=== PATIENT | female | born 1935 | race Caucasian/White ===

== ENCOUNTER → 2017-07-31 | Outpatient (CLI) | payer OTHER, MEDICARE ==
[2017-07-31 10:08] LABS: BASO % 0.3 %; BASO ABS # 0.02 K/uL (0-0.2); EOS % 3.9 %; EOS ABS # 0.23 K/uL (0-0.5); HEMATOCRIT 41.2 % (37-47); HEMOGLOBIN 13.5 g/dL (12.0-16.0); IG# 0.01 K/uL (0.00-0.02); LYMPH ABS # 2.07 K/uL (1.2-3.4); MEAN CELL VOLUME 91.6 fL (80-100); MEAN CORPUSCULAR HGB CONC 32.8 g/dl (32-36); MEAN PLATELET VOLUME 9.5 fL (7.4-10.4); MONO % 8.5 %; NEUT % 52.1 %; NEUT ABS # 3.08 K/uL (1.4-6.5); PLATELET COUNT 196 K/uL (130-400); RED CELL DISTRIBUTION WIDTH CV 13.1 % (11.5-14.5); RED CELL DISTRIBUTION WIDTH SD 43.8 fL (36.4-46.3); WHITE BLOOD COUNT 5.91 K/uL (4.8-10.8)
[2017-07-31 10:25] LABS: HEMOGLOBIN A1C 5.5 % (4.5-5.6)
[2017-07-31 10:34] LABS: ALBUMIN 3.4 gm/dl (3.4-5.0); ALT/SGPT 19 U/L (12-78); AST/SGOT 13 U/L (15-37); BLOOD UREA NITROGEN 22 mg/dl (7-18); CALCIUM 8.7 mg/dl (8.5-10.1); CARBON DIOXIDE 35 mmol/L (21-32); CREATININE 0.88 mg/dl (0.60-1.20); GLUCOSE 90 mg/dl (70-99); POTASSIUM 3.4 mmol/L (3.5-5.1); SODIUM 137 mmol/L (136-145)
[2017-07-31 10:43] LABS: ALKALINE PHOSPHATASE 94 U/L (45-117); CHOLESTEROL 182 mg/dl (0-200); LDL CHOLESTEROL CALCULATED 82 mg/dl; TOTAL PROTEIN 6.9 gm/dl (6.4-8.2)
== END | disposition home or self-care (01) ==
LOC: C.LAB 09:29
PROVIDERS: ATTEND Family Medicine
DX: I10 Essential (primary) hypertension (principal); R73.09 Other abnormal glucose; M15.9 Polyosteoarthritis, unspecified; E78.5 Hyperlipidemia, unspecified

== ENCOUNTER 2017-08-18 14:33 | Emergency (ER) | payer OTHER, MEDICARE ==
[~2017-08-18] VITALS: Ht 162.6 cm; Wt 65.8 kg
[2017-08-18 14:41] VITALS: TEMP 36.9; Ht 162.6 cm; Wt 65.8 kg
[2017-08-18] MEDS ORDERED: LIDOCAINE/EPINEPH/TETRACAINE 1 EA SYR EXT STA (15:03)
[2017-08-18] MEDS ORDERED: CALC-393 PO (15:04)
[2017-08-18] MEDS ORDERED: AMOX500C3 PO (15:04)
[2017-08-18] MEDS ORDERED: DOXY20TA3 PO (15:04)
[2017-08-18] MEDS ORDERED: ASPI81TA28 PO (15:04)
[2017-08-18] MEDS ORDERED: CYAN10005 PO (15:04)
[2017-08-18] MEDS ORDERED: MULT-513 PO (15:04)
[2017-08-18] MEDS ORDERED: HYDR12.55 PO (15:04)
[2017-08-18] MEDS ORDERED: CHOL100027 PO (15:04)
[2017-08-18] MEDS ORDERED: TRAM-453 PO (15:04)
[2017-08-18] MEDS ORDERED: GLUC1CAP35 PO (15:04)
[2017-08-18] MEDS ORDERED: OMEG10007 PO (15:04)
[2017-08-18] MEDS ORDERED: CPRDOTS OT (16:07)
--- NOTE | 2017-08-18 16:09 | EMERGENCY ROOM VISIT NOTE ---
ED Visit Note First contact with patient: 14:46 CHIEF COMPLAINT: Foreign body in the ear canal HISTORY OF PRESENT ILLNESS: This 81-year-old female patient presented to the emergency department with complaint of hearing aid battery in her left ear canal. Patient states this occurred 5 days ago, she believes the battery fell out while she was taking her hearing aid out and she was unaware of this, and then she put the hearing aid back in, pushing the battery further back into the canal. She went to see her accounting specialist, who attempted to remove the battery, but was unable to due to patient's level of pain. He is here with her and reports that the battery is a size 312 Air Zinc hearing aid battery, and confirms that this type of battery is inert and should not cause any corrosion. Patient states that there has not been any bleeding or drainage from the ear, denies fevers or chills, headache, neck pain, nausea or vomiting, REVIEW OF SYSTEMS: A 6 point review of systems was reviewed with the patient with pertinent positives and negatives as per history of present illness. All else were negative. PMH: The patient is healthy; there is no significant medical or surgical history. Her tetanus is up-to-date. SOCIAL HISTORY: Patient lives at home. PHYSICAL EXAM: Vital Signs: Reviewed Nurse's notes. The patient is calm and is not in acute distress. Exam of the left ear canal shows a round silver colored battery that is stuck deep in the canal. There is no erythema, bleeding or drainage noted. There is tenderness with palpation of the tragus. The external ear is not inflamed or tender. The TM is not able to be visualized due to the foreign body. EMERGENCY DEPARTMENT COURSE: I examined the patient. Battery is deep within the ear canal, but is able to be visualized. Dr. Khalil and myself made multiple attempts with straight forceps, alligator forceps, and suction to remove the battery, however the patient did not tolerate this well due to pain. The decision was therefore made to stop attempts to remove the foreign body at this time. Given the fact that the battery is inert and there is no concern for corrosion, we will refer the patient to ENT to have this further addressed. Ciprodex eardrops ordered to help treat potential for infection and reduce inflammation in the ear canal. The patient was updated on follow-up plan as well as educated regarding eardrops, she verbalized understanding. Patient was discharged home in stable condition and ambulatory. Medication Reconciliation: I attest that I have personally reviewed the patient' s current medication list. Blood pressure screening: The patient was found to have an elevated blood pressure, this was felt to be situational. I discussed the patient with Dr. Khalil, who also evaluated the patient increased my assessment and plan. Current/Historical Medications Scheduled Amoxicillin (Amoxil), 2,000 MG PO UD Aspirin (Aspirin Ec), 81 MG PO BID Calcium Carbonate (Calcium), 600 MG PO DAILY Cholecalciferol (Vitamin D 1000 Unit), 1,000 INTER.UNIT PO DAILY Ciprofloxacin/Dexamethasone (Ciprodex 0.3-0.1 %), 4 DROPS OT BID Cyanocobalamin (Vitamin B-12), 1,000 MCG PO DAILY Doxycycline Hyclate (Doxycycline Hyclate), 20 MG PO UD Fish Oil ([place]-3), 1 CAP PO DAILY Hkbslwanusm-Lrbmbvdholf-Xwf C- (Glucosamine Chondroitin), 1 CAP PO DAILY Hydrochlorothiazide (Hydrochlorothiazide), 1 TAB PO DAILY Multivitamins/Minerals (Mvi With Minerals), 1 TAB PO DAILY Scheduled PRN Tramadol Hcl (Ultram), 50 MG PO Q8H PRN for Pain Allergies Coded Allergies: No Known Allergies (Unverified , 08/18/17) Vital Signs Date Time Temp Pulse Resp B/P (MAP) Pulse Ox O2 Delivery O2 Flow Rate FiO2 08/18/17 16:19 75 16 124/76 98 08/18/17 14:41 36.9 90 20 144/76 97 Room Air Departure Information Impression Primary Impression: Acute foreign body of left ear canal Dispostion Home / Self-Care Condition GOOD Prescriptions Ciprofloxacin/Dexamethasone (Ciprodex 0.3-0.1 %) 112 Drops/7.5 Ml Susp 4 DROPS OT BID for 5 Days, #1 BTL Prov: Lilian Lovett, AMY 08/18/17 Referrals No Doctor, Assigned (PCP) Jose Escobar M.D. Patient Instructions ED Foreign Body Ear Canal, My [facility] Additional Instructions Follow up with ENT on Sunday. You will be called to set up an appointment. Ciprodex ear drops put 4 drops in the left ear twice a day to treat possible infection and decrease swelling. Please return to the emergency department for any worsening symptoms, including severe ear pain, drainage from the ear canal, fevers/chills, or any other concerns. Problem Qualifiers Primary Impression: Acute foreign body of left ear canal Encounter type: initial encounter Qualified Codes: T16.2XXA - Foreign body in left ear, initial encounter
[2017-08-18 16:19] VITALS: BP 124/76; PULSE 75; O2SAT 98
--- NOTE | 2017-08-18 18:30 | EMERGENCY ROOM VISIT NOTE ---
ED Visit Note First contact with patient: 16:07 I have personally evaluated this patient examined her and reviewed the pertinent labs and data. I have discussed the case with Lilian Funk, the nurse practitioner and agree with the plan. Please refer to the PA note. This patient has had a hearing a battery stuck in her ear for several days. It is deep and against the canal. There is no bleeding. We had several different attempts to remove it without success. We are going to have her follow-up with your nose and throat for further removal. Her fitness trainer is actually at the bedside and says that there is nothing harmful and these batteries and he also tried to remove it prior to coming here.
== END 2017-08-18 16:20 | disposition home or self-care (01) ==
LOC: C.EDB 14:35 → C.EDD 16:20
DX: T16.2XXA Foreign body in left ear, initial encounter (principal); Z79.899 Other long term (current) drug therapy

== ENCOUNTER → 2017-08-21 | Day surgery (SDC) | payer OTHER, MEDICARE ==
[~2017-08-21] VITALS: Ht 162.6 cm; Wt 65.0 kg
[~2017-08-21] MED LIST: AMOX500C3 PO; ASPI81TA28 PO; ATROPINE SULFATE 0.1 MG/ML 5ML SYR IV PRN; CALC-393 PO; CHOL100027 PO; CPRDOTS OT; CYAN10005 PO; DOXY20TA3 PO; EpHEDrine SULFATE INJ 50 MG/ML AMP IV PRN; FENTANYL CITRATE INJ 50 MCG/1 ML 2 ML VIAL IV PRN; FENTANYL CITRATE INJ 50 MCG/1 ML 2 ML VIAL ONE; GLUC1CAP35 PO; HYDR12.55 PO; HYDROmorphone INJ 1 MG/ML SYR IV PRN; LABETALOL HCL IV 5 MG/ML 20ML IV PRN; LACTATED RINGER'S 1000ML 1,000 ML IV SCH; LIDOCAINE HCL 2% 2 ML VIAL (20MG/ML) ONE; MEPERIDINE HCL 25 MG/ML CARP IV PRN; MIDAZOLAM HCL 1 MG/ML 2ML VIAL ONE; MULT-513 PO; OMEG10007 PO; ONDANSETRON INJ 2 MG/ML 2 ML VIAL IV PRN; PROPOFOL IV EMULSION 10 MG/ML 20 ML VIAL IV ONE; TRAM-453 PO
[2017-08-21 08:06] VITALS: BP 133/61; PULSE 73; TEMP 36.4; O2SAT 95; Ht 162.6 cm; Wt 65.0 kg
--- NOTE | 2017-08-21 08:45 | History & Physical Bridge Note ---
H&P Re-Evaluation Bridge Note: I have examined the patient, reviewed the History & Physical and in the interval since the performance of the History & Physical I have noted the following changes of clinical significance: No changes noted
--- NOTE | 2017-08-21 09:07 | Discharge Instructions ---
Discharge Instructions Date of Service Aug 21, 2017. Admission Reason for Admission: Acute Foreign Body Left Ear Canal Initial Encounte Discharge Discharge Diagnosis / Problem: Foreign body left external audiotory canal. Discharge Goals Goal(s): Decrease discomfort Activity Recommendations Activity Limitations: resume your previous activity Lifting Limitations: none Exercise/Sports Limitations: none May Resume Sexual Activity: when tolerated Shower/Bathe: no limitations Driving or Machine Use: no limitations . Instructions / Follow-Up Instructions / Follow-Up No need for follow-up. Current Hospital Diet Patient's current hospital diet: Discharge Diet Recommended Diet: Regular Diet Procedures Procedures Performed: Removal of foreign body left external auditory canal. Pending Studies Studies pending at discharge: no Laboratory Results Hemoglobin A1c Test 07/31/17 09:35 Range/Units Estimated Average Glucose 111 mg/dl Hemoglobin A1c 5.5 4.5-5.6 % Lipid Panel Test 07/31/17 09:35 Range/Units Triglycerides Level 85 0-150 mg/dl Cholesterol Level 182 0-200 mg/dl HDL Cholesterol 83 mg/dl Cholesterol/HDL Ratio 2.2 LDL Cholesterol, Calculated 82 mg/dl Medical Emergencies . Who to Call and When: Medical Emergencies: If at any time you feel your situation is an emergency, please call 911 immediately. . Non-Emergent Contact Non-Emergency issues call your: Specialist Call Non-Emergent contact if: you have a fever, your pain is not controlled . . "Provider Documentation" section prepared by Jose Escobar. . VTE Core Measure Inpt VTE Proph given/why not?: Treatment not indicated
--- NOTE | 2017-08-21 09:10 | Discharge Instructions ---
Discharge Instructions Date of Service Aug 21, 2017. Admission Reason for Admission: Acute Foreign Body Left Ear Canal Initial Encounte Discharge Discharge Diagnosis / Problem: Foreign Body left external auditory canal. Discharge Goals Goal(s): Decrease discomfort Activity Recommendations Activity Limitations: resume your previous activity Lifting Limitations: none Exercise/Sports Limitations: none May Resume Sexual Activity: when tolerated Shower/Bathe: no limitations Driving or Machine Use: no limitations . Instructions / Follow-Up Instructions / Follow-Up Continue to use otic drops for 5 more days. Keep ear dry with cotton and vaseline for one week. Current Hospital Diet Patient's current hospital diet: Discharge Diet Recommended Diet: Regular Diet Procedures Procedures Performed: Removal of Foreign Left External Auditory Canal using Microsurgical Technique Pending Studies Studies pending at discharge: no Laboratory Results Hemoglobin A1c Test 07/31/17 09:35 Range/Units Estimated Average Glucose 111 mg/dl Hemoglobin A1c 5.5 4.5-5.6 % Lipid Panel Test 07/31/17 09:35 Range/Units Triglycerides Level 85 0-150 mg/dl Cholesterol Level 182 0-200 mg/dl HDL Cholesterol 83 mg/dl Cholesterol/HDL Ratio 2.2 LDL Cholesterol, Calculated 82 mg/dl Medical Emergencies . Who to Call and When: Medical Emergencies: If at any time you feel your situation is an emergency, please call 911 immediately. . Non-Emergent Contact Non-Emergency issues call your: Specialist Call Non-Emergent contact if: you have a fever, your pain is not controlled . . "Provider Documentation" section prepared by Jose Escobar. . VTE Core Measure Inpt VTE Proph given/why not?: Treatment not indicated
--- NOTE | 2017-08-21 09:11 | [facility] Post Operative Brief Note ---
Immediate Operative Summary Operative Date Aug 21, 2017. Pre-Operative Diagnosis Foreign Body, Left, External Auditory Canal Post-Operative Diagnosis Same as pre-operative Procedure(s) Performed Removal of Foreign Left External Auditory Canal using Microsurgical Technique Surgeon Dr. Jose Escobar Electronics Supervisor Surgeon(s) None per surgeon Estimated Blood Loss 0ml Findings Consistent with Post-Op Diagnosis Specimens A.) Hearing aid Battery, Left Ear Drains None Anesthesia Type MAC Complication(s) none Disposition Disposition: Recovery Room / PACU
[2017-08-21 09:16] VITALS: BP 112/56; PULSE 70; TEMP 36.8; O2SAT 94
--- NOTE | 2017-08-21 09:19 | [facility] Operative Report ---
Operative Report Operative Date Aug 21, 2017. Pre-Operative Diagnosis Foreign Body, Left, External Auditory Canal Post-Operative Diagnosis Same as pre-operative Procedure(s) Performed Removal of foreign body left external auditory canal using microsurgical technique. Surgeon Dr. Jose Escobar Web Press Jogger Surgeon(s) None per surgeon Estimated Blood Loss 0ml Findings Hearing aid battery immediately adjacent to left tympanic membrane with no perforation of the left tympanic membrane. Specimens A.) Hearing aid Battery, Left Ear Complication(s) None Disposition Recovery Room / PACU Indications 81 year old woman with a hearing aid deep in the left external auditory canal. A full informed consent covering the indications, risks, benefits and alternatives was provided in a relaxed office setting with an opportunity for questions and answers. The patient and I signed the consent form. Description of Procedure Under satisfactory MAC, the operating microscope and metal speculum were introduced to the left ear. Using a one millimeter right angled pick, the distal aspect of the battery was engaged at its location adjacent to the left tympanic membrane. With the right stanislav rotated to secure the battery, it was gently removed without damage to the tympanic membrane or external auditory canal. Patient was transported to recovery in no acute distress. I attest to the content of the Intraoperative Record and any orders documented therein. Any exceptions are noted below.
[2017-08-21 09:45] VITALS: BP 133/66; PULSE 68; TEMP 36.8; O2SAT 96
--- NOTE | 2017-08-21 10:00 | Anesthesiology Progress Note ---
Anesthesia Post Op Note Date & Time Aug 21, 2017 at 10:00 Vital Signs Pain Intensity: 0 Vital Signs Past 12 Hours Date Time Temp Pulse Resp B/P (MAP) Pulse Ox O2 Delivery O2 Flow Rate FiO2 08/21/17 09:45 36.8 68 18 133/66 96 Room Air 08/21/17 09:16 36.8 70 18 112/56 94 Room Air 08/21/17 08:06 36.4 73 18 133/61 (85) 95 Room Air Notes Mental Status: alert / awake / arousable, participated in evaluation Pt Amnestic to Procedure: Yes Nausea / Vomiting: adequately controlled Pain: adequately controlled Airway Patency, RR, SpO2: stable & adequate BP & HR: stable & adequate Hydration State: stable & adequate Anesthetic Complications: no major complications apparent
== END | disposition home or self-care (01) ==
LOC: C.ACU 07:41
PROVIDERS: ATTEND Otolaryngology
DX: T16.2XXA Foreign body in left ear, initial encounter (principal); Y72.1 Therapeutic (nonsurgical) and rehabilitative otorhinolaryngological devices associated with adverse incidents; I10 Essential (primary) hypertension; M19.90 Unspecified osteoarthritis, unspecified site; K21.9 Gastro-esophageal reflux disease without esophagitis; Z90.49 Acquired absence of other specified parts of digestive tract; Z90.89 Acquired absence of other organs; Z79.82 Long term (current) use of aspirin; Z96.611 Presence of right artificial shoulder joint; Z96.612 Presence of left artificial shoulder joint; Z96.653 Presence of artificial knee joint, bilateral